=== PATIENT | female | born 1950 | race Caucasian/White ===

== ENCOUNTER 2018-04-17 00:23 | Inpatient (IN) | payer OTHER ==
--- NOTE | 2018-04-17 00:42 | PDOC ---
History of Present Illness - General History Source: Patient Exam Limitations: No Limitations - History of Present Illness Initial Comments: 04/17/18 01:45 The patient is a 67 year old female with past medical history of HTN, Hypercholesterolemia, and Diabetes presents to the emergency department with chest pain since around 11:00 PM Wednesday night. The patient reports she was laying down when an onset of chest pain manifested cause her to jump out of bed . The patient reports the pain radiates to her jaws, with associated symptoms of dyspnea, with no alleviating factors. The patient reports she was experiencing indigestion prior to the chest pain, reports eating watermelon and having a glass of wine around 9:00 PM Wednesday. The patient reports a baseline of difficulty sleeping during night time. The patient reports having a stress test done couple of year ago, which was reported to be normal. The patient reports she had a blood work done with Dr. Mcneill, shell know the result next week. Denies any fever, chills, headache, or cough. Denies any heart palpitation or pain to the upper extremity. Denies any numbness, tingling or weakness. Denies any nausea, vomiting, diarrhea or constipation. Denies dysuria , hematuria, frequency or urgency to urinate. Denies any recent flying. Allergies: Sulfonamide Antibiotic Social history: Former smoker (quit 5-6 years ago). Occasional use of alcohol. Denies the use of recreational drugs. Surgical history: Appendectomy, Cholecystectomy and back surgery. PCP: Dr. Mcneill <Rani De Paz - Last Filed: 04/17/18 01:45> <Tulio Reyes - Last Filed: 04/17/18 02:56> - General Chief Complaint: Chest Pain Stated Complaint: CHEST PAIN,SHORTNESS OF BREATH Time Seen by Provider: 04/17/18 00:38 Past History <Rani De Paz - Last Filed: 04/17/18 01:45> - Past Medical History Anemia: No Asthma: No Cancer: No Cardiac Disorders: No CVA: No COPD: No CHF: No Dementia: No Diabetes: Yes GI Disorders: No Disorders: No HTN: Yes Hypercholesterolemia: Yes Liver Disease: No Seizures: No Thyroid Disease: No - Surgical History Abdominal Surgery: No Appendectomy: Yes (COLONOSCOPY, EGD) Cardiac Surgery: No Cholecystectomy: Yes Lung Surgery: No Neurologic Surgery: Yes (BACK) Orthopedic Surgery: No - Suicide/Smoking/Psychosocial Hx Smoking History: Unknown if ever smoked Have you smoked in the past 12 months: No Number of Cigarettes Smoked Daily: 10 If you are a former smoker, when did you quit?: sep 2013 'Breaking Loose' booklet given: 10/10/13 Hx Alcohol Use: Yes (social) Drug/Substance Use Hx: No Substance Use Type: None <Tulio Reyes - Last Filed: 04/17/18 02:56> - Past Medical History Allergies/Adverse Reactions: Allergies Allergy/AdvReac Type Severity Reaction Status Date / Time Sulfa (Sulfonamide Allergy Verified 05/22/15 06:35 Antibiotics) Home Medications: Ambulatory Orders Simvastatin [Zocor] 40 mg PO HS 10/10/13 Furosemide [Lasix -] 40 mg PO DAILY #0 tablet 10/11/13 Metformin HCl [Riomet] 500 mg PO DAILY #0 ml 10/11/13 Nifedipine [Procardia Xl] 60 mg PO DAILY #0 tab.er.24 10/11/13 Carvedilol [Coreg -] 6.25 mg PO BID 05/17/15 Cyclobenzaprine HCl [Flexeril -] 10 mg PO HS 05/17/15 Multivitamins [Tab-A-Vit -] 1 tab PO DAILY 05/17/15 Aspirin [Ecotrin] 81 mg PO DAILY 09/30/15 Ranitidine HCl [Zantac] 150 mg PO BID 09/30/15 Meclizine HCl 25 mg PO PRN 04/17/18 Meloxicam [Mobic] 7.5 mg PO DAILY 04/17/18 Review of Systems - Review of Systems Constitutional: No: Chills, Fever Respiratory: Yes: Shortness of Breath. No: Cough Cardiac (ROS): Yes: Chest Pain. No: Edema, Lightheadedness, Palpitations, Syncope ABD/GI: No: Diarrhea, Nausea, Vomiting Neurological: No: Headache All Other Systems: Reviewed and Negative <Tulio Reyes - Last Filed: 04/17/18 02:56> *Physical Exam - Vital Signs Last Vital Signs Temp Pulse Resp BP Pulse Ox 97.5 F L 107 H 22 140/78 100 04/17/18 00:27 04/17/18 00:27 04/17/18 00:27 04/17/18 00:27 04/17/18 00:27 - Physical Exam Comments: 04/17/18 01:46 GENERAL: The patient is awake, alert, and fully oriented, in no acute distress. HEAD: Normal with no signs of trauma. EYES: Pupils equal, round and reactive to light, extraocular movements intact, sclera anicteric, conjunctiva clear with no pallor. ENT: Ears normal, nares patent, oropharynx clear without exudates. Moist mucous membranes. NECK: Normal range of motion, supple without lymphadenopathy, JVD, or masses. LUNGS: Breath sounds equal, clear to auscultation bilaterally. No wheeze/ crackles. HEART: (+) Sligh tachycardia. normal S1 and S2 without murmur or rub. ABDOMEN: Soft/nontender/nondistended. BS wnl. No guarding or rebound. No palpable masses. No hepatosplenomegaly. EXTREMITIES: (+) Trace pretibial edema bilaterally. No calf tenderness. Normal range of motion. No clubbing or cyanosis. No cords, erythema, or tenderness. NEUROLOGICAL: Cranial nerves II through XII grossly intact. Normal speech. PSYCH: Normal mood, normal affect. SKIN: Warm, Dry, normal turgor, no rashes or lesions noted. <Rani De Paz - Last Filed: 04/17/18 01:45> - Vital Signs Last Vital Signs Temp Pulse Resp BP Pulse Ox 97.5 F L 107 H 22 140/78 100 04/17/18 00:27 04/17/18 00:27 04/17/18 00:27 04/17/18 00:27 04/17/18 00:27 <Tulio Reyes - Last Filed: 04/17/18 02:56> Heart Score/ECG Review #1 ECG reviewed & interpreted by me at: 00:27 General ECG Interpretation: Sinus Rhythm, Normal Rate (103), Normal Intervals ( qtc 492), No acute ischemic changes (isolated Q III) Compared to previous ECG there are: No significant change (c/w 09/2013) #2 ECG reviewed & interpreted by me at: 02:00 General ECG Interpretation: Sinus Rhythm, Normal Rate, Normal Intervals, No acute ischemic changes Compared to previous ECG there are: No significant change <Tulio Reyes - Last Filed: 04/17/18 02:56> ED Treatment Course - LABORATORY CBC & Chemistry Diagram: 04/17/18 01:00 04/17/18 01:00 - ADDITIONAL ORDERS Additional order review: 04/17/18 01:00 RBC 4.27 MCV 86.5 MCHC 32.8 RDW 14.8 MPV 7.5 Neutrophils % 56.3 Lymphocytes % 29.4 Monocytes % 9.3 Eosinophils % 4.1 Basophils % 0.9 - Medications Given in the ED: ED Medications Discontinued Medications Generic Name Dose Route Start Last Admin Trade Name Kendell PRN Reason Stop Dose Admin Aspirin 162 mg 04/17/18 00:58 04/17/18 01:18 Asa - PO 04/17/18 00:59 162 mg ONCE ONE Administration Morphine Sulfate 2 mg 04/17/18 00:58 04/17/18 01:18 Morphine Injection - IVPUSH 04/17/18 00:59 2 mg ONCE ONE Administration <Rani De Paz - Last Filed: 04/17/18 01:45> - LABORATORY CBC & Chemistry Diagram: 04/17/18 01:00 04/17/18 01:00 <Tulio Reyes - Last Filed: 04/17/18 02:56> Medical Decision Making - Medical Decision Making 04/17/18 00:54 A portion of this note was documented by scribe services under my direction. I have reviewed the details of the note, within reason, and agree with the documentation with the following case summary and management plan written by me. 67-year-old female with history of hypertension, high cholesterol, diabetes presents with chest pain this evening. Patient was in her usual state of normal health, felt some postprandial fullness this evening after dinner, subsequently felt a relatively severe chest pressure associated with shortness of breath when she went to bed around 11:30. The pressures persisting, substernal, and radiating to her jaw. There was no lightheadedness or syncope, no diaphoresis or vomiting. She has somewhat limited exercise tolerance at baseline secondary to back pain, but she denies history of exertional chest pain or dyspnea. Patient had a stress test a couple of years ago with Dr. Mann that was reportedly normal, denies any recent infectious symptoms or signs or symptoms of DVT/PE. VSS, slight tachy at 100 but anxious at the moment no jvd s1s2 rrr, ctab abd soft trace pretibial b/l. no calf ttp 67y/o F HTN, DM, high cholesterol with relatively sudden onset chest pressure and shortness of breath. episode concerning for angina given risk factors and acuity, still doesn't feel too well. prompt EKG shows sinus tach at 103, no acute ischemia and isolated old Q wave placed on monitor and O2 applied labs, cxr asa, morphine will need admission for further cardiac monitoring and workup 04/17/18 01:59 cbc wnl. persistent discomfort despite morphine, HR remains at 98, BP 105 systolic. slight diaphoresis but no nausea. Repeat EKG, awaiting trop and CXR. 04/17/18 02:22 labs wnl, trop negative. repeat EKG no change. received fluids and feels a little better. Proceed with tele admit, Dr. Ramsey covering [facility]. 04/17/18 02:[address] Ramsey. If no response, will admit to symphony team. <Tulio Reyes - Last Filed: 04/17/18 02:56> *DC/Admit/Observation/Transfer - Attestations Scribe Attestion: 04/17/18 01:46 Documentation prepared by Rani De Paz, acting as medical diagnostic radiographer for Tulio Reyes MD. <Rani De Paz - Last Filed: 04/17/18 01:45> <Tulio Reyes - Last Filed: 04/17/18 02:56> Diagnosis at time of Disposition: Precordial chest pain - Discharge Dispostion Condition at time of disposition: Fair
[2018-04-17] MEDS ORDERED: morphine CARPU-JECT 4 MG/1 ML DISP.SYRIN IVPUSH ONE (00:58)
[2018-04-17] MEDS ORDERED: ASPIRIN 81 MG CHEWABLE TABLETS PO ONE (00:58)
[2018-04-17] MEDS ORDERED: morphine CARPU-JECT 2 MG/1 ML DISP.SYRIN ONE (01:03)
[2018-04-17] MEDS ORDERED: ASPIRIN 81 MG CHEWABLE TABLETS ONE (01:04)
[2018-04-17 01:21] LABS: BASO % 0.9 % (0-2.0); EOS % 4.1 % (0-4.5); HEMOGLOBIN 12.1 GM/dL (10.7-15.3); LYMPH % 29.4 % (8-40); MCH 28.4 pg (25.7-33.7); MCHC 32.8 g/dl (32.0-36.0); MEAN CELL VOLUME 86.5 fl (80-96); MEAN PLT VOLUME 7.5 fl (7.5-11.1); MONO % 9.3 % (3.8-10.2); NEUT % 56.3 % (42.8-82.8); PLATELET COUNT 268 K/MM3 (134-434); RBC 4.27 M/mm3 (3.60-5.2); RDW 14.8 % (11.6-15.6)
[2018-04-17 01:55] LABS: INR 0.94 (0.82-1.09); PROTHROMBIN TIME (PATIENT) 10.6 SEC (9.7-13.0)
[2018-04-17] MEDS ORDERED: SODIUM CHLORIDE 500 ML IV STA (01:59)
[2018-04-17 02:05] LABS: ALBUMIN 3.6 g/dl (3.4-5.0); ANION GAP 10 (8-16); BILIRUBIN,TOTAL 0.2 mg/dL (0.2-1.0); BLOOD UREA NITROGEN 15 mg/dL (7-18); CALCIUM 8.6 mg/dL (8.5-10.1); CHLORIDE 105 mmol/L (98-107); CO2 25 mmol/L (21-32); CREATININE 0.8 mg/dL (0.55-1.02); GLUCOSE,RANDOM 116 mg/dL (74-106); MAGNESIUM 2.3 mg/dL (1.8-2.4); POTASSIUM 3.5 mmol/L (3.5-5.1); SGOT/AST 21 U/L (15-37); SGPT/ALT 28 U/L (12-78); SODIUM 140 mmol/L (136-145); TOT PROT 7.1 g/dl (6.4-8.2)
[2018-04-17 02:10] LABS: ALK PHOS 112 U/L (45-117)
[2018-04-17] MEDS ORDERED: RANITIDINE HCL 150 MG TABLET (FP) PO ONE (02:47)
[2018-04-17] MEDS ORDERED: MAG HYDROX/AL HYDROX/SIMETH 30 ML UNIT-DOSE CUP PO ONE (02:47)
[2018-04-17] MEDS ORDERED: RANITIDINE HCL 150 MG TABLET (FP) ONE (03:03)
[2018-04-17] MEDS ORDERED: MAG HYDROX/AL HYDROX/SIMETH 30 ML UNIT-DOSE CUP ONE ×2 (03:03→06:25)
--- NOTE | 2018-04-17 03:28 | PDOC ---
*Physical Exam - Vital Signs Last Vital Signs Temp Pulse Resp BP Pulse Ox 97.5 F L 107 H 22 140/78 97 04/17/18 00:27 04/17/18 00:27 04/17/18 00:27 04/17/18 00:27 04/17/18 02:56 ED Treatment Course - LABORATORY CBC & Chemistry Diagram: 04/17/18 01:00 04/17/18 01:00 - ADDITIONAL ORDERS Additional order review: Laboratory Results 04/17/18 04/17/18 01:00 01:00 PT with INR 10.60 INR 0.94 Sodium 140 Potassium 3.5 Chloride 105 Carbon Dioxide 25 Anion Gap 10 BUN 15 Creatinine 0.8 Creat Clearance w eGFR > 60 Random Glucose 116 H Calcium 8.6 Magnesium 2.3 Total Bilirubin 0.2 D AST 21 ALT 28 Alkaline Phosphatase 112 Creatine Kinase 157 Creatine Kinase Index 1.1 CK-MB (CK-2) 1.847 Troponin I < 0.02 Total Protein 7.1 Albumin 3.6 04/17/18 01:00 RBC 4.27 MCV 86.5 MCHC 32.8 RDW 14.8 MPV 7.5 Neutrophils % 56.3 Lymphocytes % 29.4 Monocytes % 9.3 Eosinophils % 4.1 Basophils % 0.9 - Medications Given in the ED: ED Medications Discontinued Medications Generic Name Dose Route Start Last Admin Trade Name Kobiq PRN Reason Stop Dose Admin Al Hydroxide/Mg Hydroxide 30 ml 04/17/18 02:47 04/17/18 03:05 Mylanta Oral Suspension - PO 04/17/18 02:48 30 ml ONCE ONE Administration Aspirin 162 mg 04/17/18 00:58 04/17/18 01:18 Asa - PO 04/17/18 00:59 162 mg ONCE ONE Administration Sodium Chloride 500 mls @ 500 mls/hr 04/17/18 01:59 04/17/18 02:14 Normal Saline - IV 04/17/18 02:58 500 mls/hr ASDIR STA Administration Morphine Sulfate 2 mg 04/17/18 00:58 04/17/18 01:18 Morphine Injection - IVPUSH 04/17/18 00:59 2 mg ONCE ONE Administration Ranitidine HCl 300 mg 04/17/18 02:47 04/17/18 03:05 Zantac - PO 04/17/18 02:48 300 mg ONCE ONE Administration Medical Decision Making - Medical Decision Making 04/17/18 03:[address] Nalini Ramsey. Accepts to telemetry admission. Requests Dr. House for cardiology consultation. *DC/Admit/Observation/Transfer Diagnosis at time of Disposition: Precordial chest pain - Discharge Dispostion Condition at time of disposition: Fair Decision to Admit order: Yes - Referrals - Patient Instructions - Post Discharge Activity
[2018-04-17] MEDS ORDERED: NITROGLYCERIN SUBLINGUAL 1/150 0.4 MG TAB SL PRN (03:56)
[2018-04-17] MEDS ORDERED: MECLIZINE HCL 25 MG TABLET (FP) PO PRN (04:00)
[2018-04-17 05:16] LABS: CHOLESTEROL 142 mg/dL (50-200); HDL CHOLESTEROL 57 mg/dL (40-60); TRIGLYCERIDES 118 mg/dL (35-160)
[2018-04-17] MEDS: INSULIN SLIDING SCALE (NOVOLOG) 1 VIAL SQ SCH ×3 (06:32→17:17)
[2018-04-17] MEDS: MAG HYDROX/AL HYDROX/SIMETH 30 ML UNIT-DOSE CUP PO SCH ×3 (06:32→17:15)
[2018-04-17] MEDS ORDERED: FUROSEMIDE 40 MG TABLET (FP) ONE (08:03)
[2018-04-17] MEDS ORDERED: ASPIRIN COATED 81 MG TABLET.EC ONE (08:03)
[2018-04-17] MEDS ORDERED: RANITIDINE HCL 150 MG TABLET (FP) PO SCH (10:00)
--- NOTE | 2018-04-17 10:10 | EKG ---
Test Reason : Blood Pressure : / mmHG Vent. Rate : 103 BPM Atrial Rate : 103 BPM P-R Int : 160 ms QRS Dur : 080 ms QT Int : 376 ms P-R-T Axes : 044 028 050 degrees QTc Int : 492 ms SINUS TACHYCARDIA OTHERWISE NORMAL ECG WHEN COMPARED WITH ECG OF 10-OCT-2013 14:00, NO SIGNIFICANT CHANGE WAS FOUND Confirmed by RAKEL PRESLEY MD ([id number]) on 04/17/2018 10:10:01 AM Referred By: Confirmed By:RAKEL PRESLEY MD
--- NOTE | 2018-04-17 10:12 | EKG ---
Test Reason : Blood Pressure : / mmHG Vent. Rate : 095 BPM Atrial Rate : 095 BPM P-R Int : 168 ms QRS Dur : 066 ms QT Int : 376 ms P-R-T Axes : 042 028 052 degrees QTc Int : 472 ms NORMAL SINUS RHYTHM NORMAL ECG WHEN COMPARED WITH ECG OF 17-APR-2018 00:27, NO SIGNIFICANT CHANGE WAS FOUND Confirmed by RAKEL PRESLEY MD ([id number]) on 04/17/2018 10:12:21 AM Referred By: Confirmed By:RAKEL PRESLEY MD
[2018-04-17] MEDS ORDERED: FAMOTIDINE 20 MG/50 ML IVPB 20 MG/50 ML MG IVPB ONE (10:37)
[2018-04-17] MEDS: MULTIVITAMINS (DAILY MVI) TABLET (FP) PO SCH (11:15)
[2018-04-17] MEDS: ASPIRIN COATED 81 MG TABLET.EC PO SCH (11:15)
[2018-04-17] MEDS: NIFEdipine E.R 60 MG TABLET (UD) PO SCH (11:15)
[2018-04-17] MEDS: CARVEDILOL 6.25 MG TABLET (FP) PO SCH ×2 (11:15→22:04)
[2018-04-17] MEDS: FAMOTIDINE 20 MG/50 ML IVPB 20 MG/50 ML MG IVPB SCH ×2 (11:15→22:04)
[2018-04-17] MEDS: FUROSEMIDE 40 MG TABLET (FP) PO SCH (11:15)
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
[2018-04-17 15:15] VITALS: BMI 36.8
--- NOTE | 2018-04-17 15:50 | CON.CARD ---
Cardiology Consult (text) - Consultation Consultation Note: CC: cp 67 yo with pmhx of NIDDM, HTN, HLD, GERD, and chronic back issues due to spinal stenosis on [facility] who p/w cp. chest pain since around 11:00 PM Wednesday night when lying down. Had a glass of wine earlier that evening which sometimes exacerbates her gerd, but not always. Unclear if cp was similar to chronic gerd pain. States pain was severe enough to wake her up from sleep. The patient reports the pain radiated to her jaws. Associated symptoms of dyspnea. . S/p ASA 162, morphine, 500 cc IVF, mylanta and zantac. Sx's resolved after GI meds. No recurrence since. Denies orthopnea, pnd, le edema, palps, claudication or transient neurologic symptoms Denies f/c/s, n/v/d , cough, congestion, rash, h/a, visual disturbances. pmhx/pshx: per hpi Social history: Former smoker (quit 5-6 years ago). Occasional use of alcohol. Denies the use of recreational drugs. Fam hx: mother with hx of cad/stents and ppm ros: per hpi Ambulatory Orders Simvastatin [Zocor] 40 mg PO HS 10/10/13 Furosemide [Lasix -] 40 mg PO DAILY #0 tablet 10/11/13 Metformin HCl [Riomet] 500 mg PO DAILY #0 ml 10/11/13 Nifedipine [Procardia Xl] 60 mg PO DAILY #0 tab.er.24 10/11/13 Carvedilol [Coreg -] 6.25 mg PO BID 05/17/15 Cyclobenzaprine HCl [Flexeril -] 10 mg PO HS 05/17/15 Multivitamins [Tab-A-Vit -] 1 tab PO DAILY 05/17/15 Aspirin [Ecotrin] 81 mg PO DAILY 09/30/15 Ranitidine HCl [Zantac] 150 mg PO BID 09/30/15 Meclizine HCl 25 mg PO PRN 04/17/18 Meloxicam [Mobic] 7.5 mg PO DAILY 04/17/18 Current Medications Al Hydroxide/Mg Hydroxide (Mylanta Oral Suspension -) 30 ml PO Q6HPO [facility] Last Admin: 04/17/18 12:44 Dose: 30 ml Aspirin (Ecotrin -) 81 mg PO DAILY [facility] Last Admin: 04/17/18 11:15 Dose: 81 mg Atorvastatin Calcium (Lipitor -) 20 mg PO HS [facility] Carvedilol (Coreg -) 6.25 mg PO BID [facility] Last Admin: 04/17/18 11:15 Dose: 6.25 mg Cyclobenzaprine HCl (Flexeril -) 10 mg PO HS [facility] Furosemide (Lasix -) 40 mg PO DAILY [facility] Last Admin: 04/17/18 11:15 Dose: 40 mg Famotidine/Sodium Chloride (Pepcid 20 Mg Premixed Ivpb -) 20 mg in 50 mls @ 100 mls/hr IVPB BID [facility] Last Admin: 04/17/18 11:15 Dose: 100 mls/hr Insulin Aspart (Novolog Vial Sliding Scale -) 1 vial SQ TIDAC [facility]; Protocol Last Admin: 04/17/18 12:44 Dose: Not Given Meclizine HCl (Antivert -) 25 mg PO Q8H PRN PRN Reason: VERTIGO Multivitamins/Minerals/Vitamin C (Tab-A-Vit -) 1 tab PO DAILY [facility] Last Admin: 04/17/18 11:15 Dose: 1 tab Nifedipine (Procardia Xl -) 60 mg PO DAILY [facility] Last Admin: 04/17/18 11:15 Dose: 60 mg Nitroglycerin (Nitrostat -) 0.4 mg SL Q5M PRN PRN Reason: FOR CHEST PAIN Vital Signs - 24 hr 04/17/18 04/17/18 04/17/18 00:27 02:56 06:41 Temperature 97.5 F L Pulse Rate 107 H Pulse Rate [ 84 Right Apical] Respiratory 22 16 Rate Blood Pressure 140/78 Blood Pressure 101/67 [Right Arm] O2 Sat by Pulse 100 97 99 Oximetry (%) 04/17/18 04/17/18 04/17/18 07:00 10:00 11:00 Temperature 98.3 F Pulse Rate 90 Pulse Rate [ 75 89 Right Apical] Respiratory 16 16 16 Rate Blood Pressure 112/76 Blood Pressure 118/74 157/72 [Right Arm] O2 Sat by Pulse 100 96 99 Oximetry (%) 04/17/18 13:00 Temperature Pulse Rate Pulse Rate [ 91 H Right Apical] Respiratory 16 Rate Blood Pressure Blood Pressure 118/67 [Right Arm] O2 Sat by Pulse 96 Oximetry (%) Intake & Output 05/04/16/18 04/17/18 04/18/18 07:59 07:59 07:59 07:59 Intake Total 240 Balance 240 Weight 218 lb 221 lb NAD, calm JVD flat, neck supple ctab, nl effort rrr nl s1, s2. no mrg + bs soft nt nd ext without e/c/c + dp/pt, no carotid bruits no jaundice, diaphoresis aaox3 CBC, BMP 04/17/18 01:00 04/17/18 01:00 Laboratory Tests 04/17/18 04/17/18 01:00 01:00 INR 0.94 Magnesium 2.3 EKG: wnl tele: sr cxr: no acute pathology, prominent hilar markings. home cardiac meds: zocor 40, lasix 40, nifedipine 60, coreg 6.25 mg bid, asa 81 , ASSESSEMENT/PLAN 67 yo with pmhx of HTN, HLD, GERD, NIDDM and chronic back issues due to spinal stenosis on [facility] who p/w cp. cp - per report, mildly abnormal stress test in 2010. - lyte repletion, change simva to atrova as mentioned below. check tsh. - tx of gerd contribution per pmd. - ce's neg x 2. will get 3rd set. con't asa, statin - atypical cp, but based on RF's and hx of possible prior ab stress. Will check echo and repeat stress. htn - labile, but overall controlled, con't to monitor on home regimen. HL - change simvastatin 40 to atorvastatin 20 in case simva is contributing to muscle aches.
[2018-04-17] MEDS ORDERED: POTASSIUM CHLORIDE TABS 20 MEQ TABLET.ER (FP) PO ONE (16:45)
--- NOTE | 2018-04-17 20:42 | EKG ---
Test Reason : Blood Pressure : / mmHG Vent. Rate : 091 BPM Atrial Rate : 091 BPM P-R Int : 172 ms QRS Dur : 074 ms QT Int : 378 ms P-R-T Axes : 043 015 041 degrees QTc Int : 464 ms NORMAL SINUS RHYTHM NORMAL ECG WHEN COMPARED WITH ECG OF 17-APR-2018 02:00, NO SIGNIFICANT CHANGE WAS FOUND Confirmed by RAKEL PRESLEY MD ([id number]) on 04/17/2018 8:42:22 PM Referred By: Edda SANCHEZ Confirmed By:RAKEL PRESLEY MD
[2018-04-17] MEDS: ATORVASTATIN CA 20 MG TABLET (FP) PO SCH (22:04)
[2018-04-17] MEDS: CYCLOBENZAPRINE HCL 10 MG TABLET (FP) PO SCH (22:04)
[2018-04-18] MEDS: MAG HYDROX/AL HYDROX/SIMETH 30 ML UNIT-DOSE CUP PO SCH ×4 (01:42→18:41)
[2018-04-18] MEDS ORDERED: PT OWN MED DRAWER 7, Y5N ONE (06:55)
[2018-04-18 07:17] LABS: CHLORIDE 108 mmol/L (98-107); POTASSIUM 4.1 mmol/L (3.5-5.1); SODIUM 141 mmol/L (136-145)
[2018-04-18 07:43] LABS: ANION GAP 4 (8-16); BLOOD UREA NITROGEN 10 mg/dL (7-18); CALCIUM 8.5 mg/dL (8.5-10.1); CO2 29 mmol/L (21-32); CREATININE 0.6 mg/dL (0.55-1.02); GLUCOSE,RANDOM 100 mg/dL (74-106)
[2018-04-18] MEDS: INSULIN SLIDING SCALE (NOVOLOG) 1 VIAL SQ SCH ×3 (07:47→17:16)
[2018-04-18] MEDS: ASPIRIN COATED 81 MG TABLET.EC PO SCH (09:29)
[2018-04-18] MEDS: MULTIVITAMINS (DAILY MVI) TABLET (FP) PO SCH (09:29)
[2018-04-18] MEDS: NIFEdipine E.R 60 MG TABLET (UD) PO SCH (09:29)
[2018-04-18] MEDS: FUROSEMIDE 40 MG TABLET (FP) PO SCH (09:29)
[2018-04-18] MEDS: CARVEDILOL 6.25 MG TABLET (FP) PO SCH ×2 (09:30→21:02)
[2018-04-18] MEDS: FAMOTIDINE 20 MG/50 ML IVPB 20 MG/50 ML MG IVPB SCH ×2 (09:30→21:01)
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
--- NOTE | 2018-04-18 14:18 | PN ---
Progress Note (short form) - Note Progress Note: CC: cp S: no cp, palps, dizziness, sob. Current Medications Al Hydroxide/Mg Hydroxide (Mylanta Oral Suspension -) 30 ml PO Q6HPO [facility] Last Admin: 04/18/18 13:00 Dose: Not Given Aspirin (Ecotrin -) 81 mg PO DAILY [facility] Last Admin: 04/18/18 09:29 Dose: 81 mg Atorvastatin Calcium (Lipitor -) 20 mg PO HS [facility] Last Admin: 04/17/18 22:04 Dose: 20 mg Carvedilol (Coreg -) 6.25 mg PO BID [facility] Last Admin: 04/18/18 09:30 Dose: 6.25 mg Cyclobenzaprine HCl (Flexeril -) 10 mg PO HS [facility] Last Admin: 04/17/18 22:04 Dose: 10 mg Furosemide (Lasix -) 40 mg PO DAILY [facility] Last Admin: 04/18/18 09:29 Dose: 40 mg Famotidine/Sodium Chloride (Pepcid 20 Mg Premixed Ivpb -) 20 mg in 50 mls @ 100 mls/hr IVPB BID [facility] Last Admin: 04/18/18 09:30 Dose: 100 mls/hr Insulin Aspart (Novolog Vial Sliding Scale -) 1 vial SQ TIDAC [facility]; Protocol Last Admin: 04/18/18 13:00 Dose: Not Given Meclizine HCl (Antivert -) 25 mg PO Q8H PRN PRN Reason: VERTIGO Multivitamins/Minerals/Vitamin C (Tab-A-Vit -) 1 tab PO DAILY [facility] Last Admin: 04/18/18 09:29 Dose: 1 tab Nifedipine (Procardia Xl -) 60 mg PO DAILY [facility] Last Admin: 04/18/18 09:29 Dose: 60 mg Nitroglycerin (Nitrostat -) 0.4 mg SL Q5M PRN PRN Reason: FOR CHEST PAIN Vital Signs - 24 hr 04/17/18 04/17/18 04/17/18 17:34 21:00 22:18 Temperature 97.9 F 98.0 F Pulse Rate 92 H 91 H Respiratory 20 20 16 Rate Blood Pressure 117/67 116/55 O2 Sat by Pulse 90 L Oximetry (%) 04/18/18 04/18/18 02:00 06:00 Temperature 98.0 F 97.6 F Pulse Rate 91 H 89 Respiratory 20 20 Rate Blood Pressure 127/75 125/92 O2 Sat by Pulse Oximetry (%) Intake & Output 04/16/18 04/17/18 04/18/18 04/19/18 07:59 07:59 07:59 07:59 Intake Total 890 Balance 890 Weight 218 lb 221 lb NAD, calm JVD flat, neck supple ctab, nl effort rrr nl s1, s2. no mrg + bs soft nt nd ext without e/c/c + dp/pt, no carotid bruits no jaundice, diaphoresis aaox3 CBC, BMP 04/17/18 01:00 04/18/18 06:00 Laboratory Tests 04/17/18 04/17/18 04/17/18 01:00 04:30 04:30 Magnesium 2.3 Troponin I < 0.02 < 0.02 Total LDL Cholesterol 75 TSH 04/17/18 04/18/18 17:35 06:00 Magnesium Troponin I < 0.02 Total LDL Cholesterol TSH 3.16 EKG: wnl tele: sr/sinus tach. cxr: no acute pathology, prominent hilar markings. home cardiac meds: zocor 40, lasix 40, nifedipine 60, coreg 6.25 mg bid, asa 81 , ASSESSEMENT/PLAN 67 yo with pmhx of HTN, HLD, GERD, NIDDM and chronic back issues due to spinal stenosis on mobic who p/w cp. cp - per report, mildly abnormal stress test in 2010. - lyte repletion, changed simva to atorva as mentioned below. - tx of gerd contribution per pmd. - ce's neg x 3. ekg without acute ischemic changes. con't asa, statin - atypical cp, but based on RF's and hx of possible prior ab stress. Will check echo and repeat stress. htn - contorlled, con't to monitor on home regimen. HL - changed simvastatin 40 to atorvastatin 20 in case simva is contributing to muscle aches.
[2018-04-18] MEDS: CYCLOBENZAPRINE HCL 10 MG TABLET (FP) PO SCH (21:02)
[2018-04-18] MEDS: ATORVASTATIN CA 20 MG TABLET (FP) PO SCH (21:02)
[2018-04-19] MEDS: MAG HYDROX/AL HYDROX/SIMETH 30 ML UNIT-DOSE CUP PO SCH ×4 (00:49→17:02)
[2018-04-19] MEDS: INSULIN SLIDING SCALE (NOVOLOG) 1 VIAL SQ SCH ×3 (06:16→17:02)
[2018-04-19] MEDS: FAMOTIDINE 20 MG/50 ML IVPB 20 MG/50 ML MG IVPB SCH (10:00)
[2018-04-19] MEDS ORDERED: REGADENOSON 0.4 MG/5 ML PRE-FILLED SYRINGE IVPUSH ONE ×2 (12:58→14:30)
[2018-04-19] MEDS: MULTIVITAMINS (DAILY MVI) TABLET (FP) PO SCH (14:01)
[2018-04-19] MEDS: FUROSEMIDE 40 MG TABLET (FP) PO SCH (14:01)
[2018-04-19] MEDS: ASPIRIN COATED 81 MG TABLET.EC PO SCH (14:01)
[2018-04-19 15:42] VITALS: PULSE 96
--- NOTE | 2018-04-19 16:16 | PN ---
Progress Note, Physician Chief Complaint: Ms Burt is without complaint. Denies cp, sob, n/v. - Current Medication List Current Medications: Active Medications Al Hydroxide/Mg Hydroxide (Mylanta Oral Suspension -) 30 ml PO Q6HPO [facility] Last Admin: 04/19/18 12:00 Dose: Not Given Aspirin (Ecotrin -) 81 mg PO DAILY [facility] Last Admin: 04/19/18 14:01 Dose: 81 mg Atorvastatin Calcium (Lipitor -) 20 mg PO HS [facility] Last Admin: 04/18/18 21:02 Dose: 20 mg Carvedilol (Coreg -) 6.25 mg PO BID [facility] Last Admin: 04/18/18 21:02 Dose: 6.25 mg Cyclobenzaprine HCl (Flexeril -) 10 mg PO HS [facility] Last Admin: 04/18/18 21:02 Dose: 10 mg Furosemide (Lasix -) 40 mg PO DAILY [facility] Last Admin: 04/19/18 14:01 Dose: 40 mg Famotidine/Sodium Chloride (Pepcid 20 Mg Premixed Ivpb -) 20 mg in 50 mls @ 100 mls/hr IVPB BID [facility] Last Admin: 04/19/18 10:00 Dose: Not Given Insulin Aspart (Novolog Vial Sliding Scale -) 1 vial SQ TIDAC [facility]; Protocol Last Admin: 04/19/18 11:00 Dose: Not Given Meclizine HCl (Antivert -) 25 mg PO Q8H PRN PRN Reason: VERTIGO Multivitamins/Minerals/Vitamin C (Tab-A-Vit -) 1 tab PO DAILY [facility] Last Admin: 04/19/18 14:01 Dose: 1 tab Nifedipine (Procardia Xl -) 60 mg PO DAILY [facility] Last Admin: 04/18/18 09:29 Dose: 60 mg Nitroglycerin (Nitrostat -) 0.4 mg SL Q5M PRN PRN Reason: FOR CHEST PAIN - Objective Vital Signs: Vital Signs Temperature 36.6 C 04/19/18 13:15 Pulse Rate 96 H 04/19/18 13:15 Respiratory Rate 18 04/19/18 13:15 Blood Pressure 117/64 04/19/18 13:15 O2 Sat by Pulse Oximetry (%) 98 04/19/18 09:00 Constitutional: Yes: No Distress, Calm, Obese Cardiovascular: Yes: Regular Rate and Rhythm. No: Gallop, Murmur, Rub Respiratory: Yes: Regular, CTA Bilaterally. No: Rales, Rhonchi, Wheezes Gastrointestinal: Yes: Normal Bowel Sounds, Soft. No: Distention, Tenderness Extremities: Yes: WNL Edema: No Labs: CBC, BMP 04/17/18 01:00 04/18/18 06:00 INR, PTT INR 0.94 (0.82-1.09) 04/17/18 01:00 Problem List - Problems (1) Chest pain Code(s): R07.9 - CHEST PAIN, UNSPECIFIED (2) GERD (gastroesophageal reflux disease) Code(s): K21.9 - GASTRO-ESOPHAGEAL REFLUX DISEASE WITHOUT ESOPHAGITIS (3) HTN (hypertension) Code(s): I10 - ESSENTIAL (PRIMARY) HYPERTENSION (4) Hypercholesterolemia Code(s): E78.00 - PURE HYPERCHOLESTEROLEMIA, UNSPECIFIED (5) Obesity (BMI 35.0-39.9 without comorbidity) Code(s): E66.9 - OBESITY, UNSPECIFIED (6) T2DM (type 2 diabetes mellitus) Code(s): E11.9 - TYPE 2 DIABETES MELLITUS WITHOUT COMPLICATIONS Assessment/Plan -case d/w Dr Singh -chest pain currently resolved -? secondary to GERD -s/p stress test -if stress test normal, discharge home and follow up with Dr Gonzales -if abnormal, cardiology to evaluate for further intervention -continue current regimen
[2018-04-19 18:22] VITALS: BP 127/65; TEMP 99.9
--- NOTE | 2018-04-20 09:24 | DS ---
Physical Examination Vital Signs: Vital Signs Temperature 37.7 C H 04/19/18 18:21 Pulse Rate 96 H 04/19/18 18:21 Respiratory Rate 20 04/19/18 18:21 Blood Pressure 127/65 04/19/18 18:21 O2 Sat by Pulse Oximetry (%) 98 04/19/18 09:00 Labs: CBC, BMP 04/17/18 01:00 04/18/18 06:00 Discharge Summary Reason For Visit: PRECORDIAL PAIN Hospital Course: Patient admitted for atypical chest pain. She was monitored on telemetry. Cardiac enzymes x3 were checked and normal. She had a stress test and it was normal. Her discharge was confirmed by cardiology. She is safe for discharge home. Condition: Good - Instructions Diet, Activity, Other Instructions: resume previous diet and activity. Referrals: Yemi Mcneill MD [Staff Physician] - Fabrizio Howell MD [Staff Physician] - Mandeep Martínez MD [Staff Physician] - Disposition: HOME - Home Medications Comprehensive Discharge Medication List: Ambulatory Orders Simvastatin [Zocor -] 40 mg PO HS 10/10/13 Furosemide [Lasix -] 40 mg PO DAILY #0 tablet 10/11/13 Metformin HCl [Riomet] 500 mg PO DAILY #0 ml 10/11/13 Nifedipine [Procardia Xl] 60 mg PO DAILY #0 tab.er.24 10/11/13 Carvedilol [Coreg -] 6.25 mg PO BID 05/17/15 Cyclobenzaprine HCl [Flexeril -] 10 mg PO HS 05/17/15 Multivitamins [Multivit ([facility] Formulary)] 1 tab PO DAILY 05/17/15 Aspirin [Ecotrin] 81 mg PO DAILY 09/30/15 Ranitidine HCl [Zantac] 150 mg PO BID 09/30/15 Meclizine HCl 25 mg PO PRN 04/17/18 Meloxicam [Mobic] 7.5 mg PO DAILY 04/17/18
== END 2018-04-19 18:55 | disposition home or self-care (01) | DRG 313 ==
LOC: JER 00:23 → JERBED 03:28 → J4S 13:17
PROVIDERS: ADMIT Internal Medicine; ATTEND Internal Medicine
DX: R07.2 Precordial pain (principal); I10 Essential (primary) hypertension; E78.00 Pure hypercholesterolemia, unspecified; E11.9 Type 2 diabetes mellitus without complications; Z87.891 Personal history of nicotine dependence; Z79.84 Long term (current) use of oral hypoglycemic drugs; E66.9 Obesity, unspecified; Z68.36 Body mass index [BMI] 36.0-36.9, adult; M54.9 Dorsalgia, unspecified
CPT/HCPCS: 36415; 71045-TC-FY; 78452-TC; 80048; 80053; 80061; 82550; 82553; 82962; 83036; 83721; 83735; 84443; 84484; 85025; 85610; 93005; 93010; 93017; 93306-TC; 99285-25; A9502; J2785

== ENCOUNTER 2018-06-20 07:01 | Day surgery (SDC) | payer OTHER ==
[2018-06-17 13:55] VITALS: BMI 39.4
[2018-06-20 07:43] VITALS: TEMP 98.2
[2018-06-20] MEDS ORDERED: LIDOCAINE HCL/PF 2% SDV 5ML VIAL ONE (08:04)
[2018-06-20] MEDS ORDERED: PROPOFOL 20 ML ONE ×3 (08:04)
[2018-06-20 10:35] VITALS: BP 123/73; PULSE 71
--- NOTE | 2018-06-21 15:44 | PATH ---
Surgical Pathology Report Patient Name: JAMES GODOY [facility]. Rec. #: [id number] /Age/Gender: 1950 (Age: 68) / F Account: [id number] Location: U-ENDOSCOPY Taken: 06/20/2018 Received: 06/20/2018 Reported: 06/21/2018 Physicians: Mandeep Martínez M.D. Specimen(s) Received A: BX 2ND PORTION DUODENUM AND BULB B: BX ANTRUM C: BX GASTRIC BODY POLYP D: BX GE JUNCTION Clinical History Chest pain, heartburn Final Diagnosis A. SECOND PORTION DUODENUM AND BULB, BIOPSY: DUODENAL MUCOSA WITH MILD CHRONIC DUODENITIS. B. ANTRUM, BIOPSY: GASTRIC MUCOSA WITH MILD CHRONIC GASTRITIS. IMMUNOSTAIN IS NEGATIVE FOR H. PYLORI ORGANISMS. C. GASTRIC BODY POLYP, BIOPSY: FUNDIC GLAND POLYP. IMMUNOSTAIN IS NEGATIVE FOR H. PYLORI ORGANISMS. D. GE JUNCTION, BIOPSY: ESOPHAGEAL (SQUAMOUS) MUCOSA WITH CHANGES CONSISTENT WITH REFLUX ESOPHAGITIS. Electronically Signed Be Jacobo M.D. Gross Description A. Received in formalin, labeled "second portion and duodenum bulb" are 3 markham, irregular portions of soft tissue measuring 0.4 cm. in greatest dimension. The specimens are submitted in toto in one cassette. B. Received in formalin, labeled "biopsy antrum" are 4 markham, irregular portions of soft tissue measuring 0.6 cm. in greatest dimension. The specimens are submitted in toto in one cassette. C. Received in formalin, labeled "biopsy gastric body polyp" are 2 markham, irregular portions of soft tissue measuring 0.4 cm. in greatest dimension. The specimens are submitted in toto in one cassette. D. Received in formalin, labeled "GE junction biopsy" are 2 markham, irregular portions of soft tissue measuring 0.3 cm. in greatest dimension. The specimens are submitted in toto in one cassette. __ KWS/06/20/2018 jena/06/20/2018
== END 2018-06-20 10:30 | disposition home or self-care (01) ==
LOC: JASU-ENDO 07:01
PROVIDERS: ATTEND Internal Medicine Gastroenterology
PROC: 0DB68ZX Excision of Stomach, Via Natural or Artificial Opening Endoscopic, Diagnostic (ICD-10-PCS; 2018-06-20)
PROC: 0DB38ZX Excision of Lower Esophagus, Via Natural or Artificial Opening Endoscopic, Diagnostic (ICD-10-PCS; 2018-06-20)
PROC: 0DB48ZX Excision of Esophagogastric Junction, Via Natural or Artificial Opening Endoscopic, Diagnostic (ICD-10-PCS; 2018-06-20)
PROC: 0DB98ZX Excision of Duodenum, Via Natural or Artificial Opening Endoscopic, Diagnostic (ICD-10-PCS; principal; 2018-06-20 08:00)
DX: K21.0 Gastro-esophageal reflux disease with esophagitis (principal); K44.9 Diaphragmatic hernia without obstruction or gangrene; K29.70 Gastritis, unspecified, without bleeding; K31.7 Polyp of stomach and duodenum
CPT/HCPCS: 88305-TC; 88342-TC

== ENCOUNTER 2018-10-12 08:15 | Emergency (ER) | payer OTHER ==
[2018-10-12 08:42] VITALS: BP 108/67; PULSE 82; TEMP 97.9; BMI 33.9
--- NOTE | 2018-10-12 09:15 | PDOC ---
History of Present Illness - General Chief Complaint: Pain Stated Complaint: KNEE PAIN Time Seen by Provider: 10/12/18 08:59 History Source: Patient Exam Limitations: No Limitations - History of Present Illness Initial Comments: 10/12/18 09:11 68 yr female with history of arthritis presents with pain to the right knee for 4 days denies trauma. denies fever or chills. Past History - Past Medical History Allergies/Adverse Reactions: Allergies Allergy/AdvReac Type Severity Reaction Status Date / Time Sulfa (Sulfonamide Allergy Verified 10/12/18 08:37 Antibiotics) Home Medications: Ambulatory Orders Simvastatin [Zocor -] 40 mg PO HS 10/10/13 Furosemide [Lasix -] 40 mg PO DAILY #0 tablet 10/11/13 Metformin HCl [Riomet] 500 mg PO DAILY #0 ml 10/11/13 Nifedipine [Procardia Xl] 60 mg PO DAILY #0 tab.er.24 10/11/13 Carvedilol [Coreg -] 6.25 mg PO BID 05/17/15 Cyclobenzaprine HCl [Flexeril -] 10 mg PO HS 05/17/15 Multivitamins [Multivit ([facility] Formulary)] 1 tab PO DAILY 05/17/15 Aspirin [Ecotrin] 81 mg PO DAILY 09/30/15 Meclizine HCl 25 mg PO PRN 04/17/18 Meloxicam [Mobic] 7.5 mg PO DAILY 04/17/18 Gabapentin [Neurontin] 400 mg PO DAILY 06/17/18 Mag Carb/Aluminum Hydrox/Algin [Gaviscon Liquid] 30 ml PO PRN PRN #0 oral.susp 06/20/18 Pantoprazole Sodium 40 mg PO HS #1 tablet. 06/20/18 Anemia: No Asthma: No Cancer: No Cardiac Disorders: No CVA: No COPD: No CHF: No Dementia: No Diabetes: Yes (NIDDM) GI Disorders: Yes (COLON POLYPS, DIVERTICULOSIS) Disorders: No HTN: Yes Hypercholesterolemia: Yes Liver Disease: No Seizures: No Thyroid Disease: No - Surgical History Abdominal Surgery: No Appendectomy: Yes Cardiac Surgery: No Cholecystectomy: Yes Lung Surgery: No Neurologic Surgery: Yes (BACK sx twice) Orthopedic Surgery: No - Suicide/Smoking/Psychosocial Hx Smoking History: Former smoker Have you smoked in the past 12 months: No Number of Cigarettes Smoked Daily: 10 If you are a former smoker, when did you quit?: sep 2013 Information on smoking cessation initiated: No 'Breaking Loose' booklet given: 10/10/13 Hx Alcohol Use: No Drug/Substance Use Hx: No Substance Use Type: None *Physical Exam - Vital Signs Last Vital Signs Temp Pulse Resp BP Pulse Ox 97.9 F 82 18 108/67 99 10/12/18 08:37 10/12/18 08:37 10/12/18 08:37 10/12/18 08:37 10/12/18 08:37 - Physical Exam General Appearance: Yes: Nourished, Appropriately Dressed HEENT: positive: EOMI, AUGIE Neck: positive: Supple. negative: Tender Respiratory/Chest: positive: Lungs Clear, Normal Breath Sounds. negative: Chest Tender Cardiovascular: positive: Regular Rhythm, Regular Rate Musculoskeletal: positive: Normal Inspection Extremity: positive: Normal Capillary Refill, Normal Range of Motion, Tender ( lateral, medial knee , neg calf or popliteal tenderness ) Integumentary: positive: Normal Color, Dry, Warm Neurologic: positive: Fully Oriented, Alert, Normal Mood/Affect, Normal Response , Motor Strength 5/5 Procedures - Splinting Pre-Made Type: knee immobilizer ED Treatment Course - RADIOLOGY Radiology Studies Ordered: Category Date Time Status KNEE 3 POS-RIGHT [RAD] Stat Radiology 10/12/18 09:09 Ordered Medical Decision Making - Medical Decision Making 10/12/18 09:14 cc: knee pain no redness no warmth, no calf tenderness will get xray knee immobilizer refer to ortho pt takes mobic daily for arthritis *DC/Admit/Observation/Transfer Diagnosis at time of Disposition: Knee pain, chronic Qualifiers: Laterality: right Qualified Code(s): M25.561 - Pain in right knee - Discharge Dispostion Disposition: HOME Condition at time of disposition: Good - Referrals Referrals: Yemi Mcneill MD [Primary Care Provider] - Alan Christianson MD [Staff Physician] - - Patient Instructions Additional Instructions: use the knee immobilizer while awake remove to sleep follow with the orthopedist listed below elevate and apply warm compresses every 4-6hrs for pain - Post Discharge Activity
== END 2018-10-12 10:19 | disposition home or self-care (01) ==
LOC: JERFT 08:15
PROC: 2W3QXYZ Immobilization of Right Lower Leg using Other Device (ICD-10-PCS; principal; 2018-10-12)
DX: M25.561 Pain in right knee (principal); G89.29 Other chronic pain; I10 Essential (primary) hypertension; E78.00 Pure hypercholesterolemia, unspecified; E11.9 Type 2 diabetes mellitus without complications; Z79.84 Long term (current) use of oral hypoglycemic drugs
CPT/HCPCS: 73562-TC-RT-FY; 99282-25

== ENCOUNTER 2019-07-02 09:11 | Emergency (ER) | payer OTHER | END 2019-07-02 10:30 | disposition home or self-care (01) | LOC: FER 09:11 ==

== ENCOUNTER 2020-06-07 06:48 | Day surgery (SDC) | payer OTHER ==
[2020-06-05 10:12] VITALS: BMI 35.8
[2020-06-07 08:34] VITALS: TEMP 97.8
[2020-06-07 09:21] VITALS: BP 105/53; PULSE 79
--- NOTE | 2020-06-10 17:13 | PATH ---
Surgical Pathology Report Patient Name: JAMES GODOY [facility]. Rec. #: [id number] /Age/Gender: 1950 (Age: 70) / F Account: [id number] Location: [facility]-ENDOSCOPY Taken: 06/07/2020 Received: 06/07/2020 Reported: 06/10/2020 Physicians: Mandeep Martínez M.D. Specimen(s) Received A: TRANSVERSE COLON POLYP B: RIGHT COLON POLYP C: DESCENDING COLON POLYP D: SIGMOID POLYPS Clinical History Change in bowel habits, bleeding Postoperative diagnosis: Diverticulosis, multiple colon polyps Final Diagnosis A. TRANSVERSE COLON, POLYP, POLYPECTOMY: TUBULAR ADENOMA. B. COLON, RIGHT, POLYP, BIOPSY: POLYPOID COLONIC MUCOSA WITH SMALL LYMPHOID AGGREGATE. C. DESCENDING COLON, POLYP, BIOPSY: TUBULAR ADENOMA. D. SIGMOID COLON, POLYPS, BIOPSY: HYPERPLASTIC POLYP(S). Electronically Signed Charlene Brown M.D. Gross Description A. Received in formalin, labeled "transverse colon polyp" is a markham, irregular portion of soft tissue measuring 0.3 cm. in greatest dimension. The specimen is submitted in toto in one cassette. B. Received in formalin, labeled "biopsy right colon polyp" are 4 markham, irregular portions of soft tissue ranging from 0.1-0.3 cm. in greatest dimension. The specimens are submitted in toto in one cassette. C. Received in formalin, labeled "biopsy descending colon polyp" are 2 markham, irregular portions of soft tissue averaging 0.2 cm. in greatest dimension. The specimens are submitted in toto in one cassette. D. Received in formalin, labeled "biopsy sigmoid colon polyps x2" are 4 markham, irregular portions of soft tissue ranging from 0.1-0.3 cm. in greatest dimension. The specimens are submitted in toto in one cassette. DL/06/07/2020 saudi/06/07/2020
== END 2020-06-07 10:10 | disposition home or self-care (01) ==
LOC: JASU-ENDO 06:48
PROVIDERS: ATTEND Internal Medicine Gastroenterology
PROC: 0DBL8ZX Excision of Transverse Colon, Via Natural or Artificial Opening Endoscopic, Diagnostic (ICD-10-PCS; 2020-06-07)
PROC: 0DBK8ZX Excision of Ascending Colon, Via Natural or Artificial Opening Endoscopic, Diagnostic (ICD-10-PCS; 2020-06-07)
PROC: 0DBN8ZX Excision of Sigmoid Colon, Via Natural or Artificial Opening Endoscopic, Diagnostic (ICD-10-PCS; 2020-06-07)
PROC: 0DBM8ZX Excision of Descending Colon, Via Natural or Artificial Opening Endoscopic, Diagnostic (ICD-10-PCS; principal; 2020-06-07 08:00)
DX: Z12.11 Encounter for screening for malignant neoplasm of colon (principal); Z86.010 Personal history of colon polyps; D12.2 Benign neoplasm of ascending colon; D12.4 Benign neoplasm of descending colon; D12.5 Benign neoplasm of sigmoid colon; D12.3 Benign neoplasm of transverse colon; K64.8 Other hemorrhoids; K57.30 Diverticulosis of large intestine without perforation or abscess without bleeding
CPT/HCPCS: 88305-TC

== ENCOUNTER 2020-11-07 10:07 | Emergency (ER) | payer OTHER ==
[2020-11-07 10:35] VITALS: PULSE 73; TEMP 98.9; BMI 32.8
[2020-11-07] MEDS ORDERED: ACETAMINOPHEN 325 MG TABLET (FP) PO ONE (10:35)
[2020-11-07] MEDS ORDERED: ACETAMINOPHEN 325 MG TABLET (FP) ONE (10:50)
[2020-11-07] MEDS ORDERED: LIDOCAINE 5% TOPICAL PATCH TP ONE (11:19)
[2020-11-07] MEDS ORDERED: LIDOCAINE 5% TOPICAL PATCH ONE (11:21)
[2020-11-07 12:24] VITALS: BP 149/89
[2020-11-07] MEDS ORDERED: LIDOCAINE PATCH REMOVAL MC SCH (22:00)
== END 2020-11-07 12:30 | disposition home or self-care (01) ==
LOC: FER 10:07 → SUPCPDRO 10:07 → FER 12:30
DX: S23.41XA Sprain of ribs, initial encounter (principal)
CPT/HCPCS: 71101-TC-RT-FY; 72110-TC-FY; 99285-25

== ENCOUNTER 2022-01-05 04:36 | Day surgery (SDC) | payer OTHER ==
[2021-12-31 15:03] VITALS: BMI 34.7
[2022-01-05 11:26] VITALS: TEMP 97
[2022-01-05 12:22] VITALS: BP 123/77; PULSE 87
== END 2022-01-05 12:30 | disposition home or self-care (01) ==
LOC: JASU-ENDO 04:36
PROVIDERS: ATTEND Internal Medicine Gastroenterology
PROC: 0DJD8ZZ Inspection of Lower Intestinal Tract, Via Natural or Artificial Opening Endoscopic (ICD-10-PCS; principal; 2022-01-05 11:00)
DX: Z12.11 Encounter for screening for malignant neoplasm of colon (principal); K57.30 Diverticulosis of large intestine without perforation or abscess without bleeding; K59.89 Other specified functional intestinal disorders; E11.9 Type 2 diabetes mellitus without complications; Z86.010 Personal history of colon polyps

== ENCOUNTER 2022-11-01 09:12 | Observation (INO) | payer OTHER ==
[2022-11-01] MEDS ORDERED: SODIUM CHLORIDE 1,000 ML IV STA (09:16)
[2022-11-01] MEDS ORDERED: ASPIRIN 81 MG CHEWABLE TABLETS ONE (09:26)
[2022-11-01] MEDS ORDERED: ASPIRIN 81 MG CHEWABLE TABLETS PO ONE (09:26)
[2022-11-01] MEDS ORDERED: ONDANSETRON 4 MG/2 ML VIAL IVPUSH ONE (09:41)
[2022-11-01] MEDS ORDERED: morphine CARPU-JECT 4 MG/1 ML DISP.SYRIN IVPUSH ONE (09:41)
[2022-11-01] MEDS ORDERED: ACETAMINOPHEN 1000 MG/100 ML BAG IVPB ONE (09:49)
[2022-11-01] MEDS ORDERED: morphine SULFATE 4 MG/ML VIAL ONE (09:50)
[2022-11-01] MEDS ORDERED: ONDANSETRON 4 MG/2 ML VIAL ONE (09:51)
[2022-11-01] MEDS ORDERED: ACETAMINOPHEN INJECTION 100 ML IVPB ONE (09:56)
[2022-11-01 10:00] LABS: EOS % 1.4 % (0-4.5); HEMATOCRIT 40.8 % (32.4-45.2); HEMOGLOBIN 13.6 GM/dL (10.7-15.3); LYMPH % 19.3 % (8-40); MCH 29.5 pg (25.7-33.7); MCHC 33.3 g/dl (32.0-36.0); MEAN CELL VOLUME 88.4 fl (80-96); MEAN PLT VOLUME 7.7 fl (7.5-11.1); MONO % 8.4 % (3.8-10.2); NEUT % 69.9 % (42.8-82.8); PLATELET COUNT 306 10^3/uL (134-434); RBC 4.61 M/mm3 (3.60-5.2); RDW 14.3 % (11.6-15.6); WHITE BLOOD COUNT 7.6 K/mm3 (4.0-10.0)
[2022-11-01 11:57] LABS: CALCIUM 9.7 mg/dL (8.5-10.1)
[2022-11-01 11:58] LABS: BLOOD UREA NITROGEN 15.5 mg/dL (7-18); MAGNESIUM 2.3 mg/dL (1.8-2.4)
[2022-11-01 12:01] LABS: CREATININE 0.8 mg/dL (0.55-1.3)
[2022-11-01 12:03] LABS: BILIRUBIN,TOTAL 0.4 mg/dL (0.2-1); TOT PROT 7.6 g/dl (6.4-8.2)
[2022-11-01] MEDS ORDERED: PATIENT'S OWN MEDICATION (NON-FORMULARY) (Mag Carb/Aluminum Hydrox/Algin [Gaviscon Liquid] PO PRN (14:51)
[2022-11-01] MEDS ORDERED: ACETAMINOPHEN 325 MG TABLET (FP) PO PRN (14:57)
[2022-11-01] MEDS ORDERED: ENALAPRIL MALEATE 5 MG TABLET PO SCH (15:00)
[2022-11-01] MEDS ORDERED: PATIENT'S OWN MEDICATION (NON-FORMULARY) (Dulaglutide [Trulicity] 0.75 MG/0.5 ML Pen.Injct SQ SCH (15:00)
[2022-11-01] MEDS ORDERED: ENALAPRIL MALEATE 5 MG TABLET ONE (17:49)
[2022-11-01] MEDS: INSULIN SLIDING SCALE (NOVOLOG) 1 VIAL SQ SCH ×2 (17:57→22:42)
[2022-11-01] MEDS: CARVEDILOL 6.25 MG TABLET (FP) PO SCH (21:46)
[2022-11-01] MEDS: HEPARIN NA (PORCINE) 5,000 UNITS/ML 1ML VIAL SQ SCH (21:47)
[2022-11-01] MEDS ORDERED: HEPARIN NA (PORCINE) 5,000 UNITS/ML 1ML VIAL ONE (21:49)
[2022-11-01] MEDS ORDERED: CARVEDILOL 6.25 MG TABLET (FP) ONE (21:49)
[2022-11-01] MEDS ORDERED: CYCLOBENZAPRINE HCL 10 MG TABLET (FP) ONE (21:49)
[2022-11-01] MEDS ORDERED: GABAPENTIN 400 MG CAPSULE ONE (21:49)
[2022-11-01] MEDS ORDERED: GABAPENTIN 400 MG CAPSULE PO SCH (22:00)
[2022-11-01] MEDS ORDERED: CYCLOBENZAPRINE HCL 10 MG TABLET (FP) PO SCH (22:00)
[2022-11-01 23:25] VITALS: BMI 35.8
[2022-11-02] MEDS: INSULIN SLIDING SCALE (NOVOLOG) 1 VIAL SQ SCH ×3 (06:24→16:57)
[2022-11-02 08:44] LABS: BASO % 0.7 % (0-2.0); EOS % 1.4 % (0-4.5); HEMOGLOBIN 12.5 GM/dL (10.7-15.3); LYMPH % 18.1 % (8-40); MCH 29.5 pg (25.7-33.7); MEAN CELL VOLUME 89.6 fl (80-96); MEAN PLT VOLUME 7.8 fl (7.5-11.1); MONO % 8.5 % (3.8-10.2); NEUT % 71.3 % (42.8-82.8); PLATELET COUNT 276 10^3/uL (134-434); RBC 4.24 M/mm3 (3.60-5.2); RDW 14.4 % (11.6-15.6)
[2022-11-02 09:17] LABS: ALBUMIN 3.3 g/dl (3.4-5.0); BLOOD UREA NITROGEN 12.3 mg/dL (7-18)
[2022-11-02 09:20] LABS: CREATININE 0.7 mg/dL (0.55-1.3)
[2022-11-02 09:21] LABS: CHOLESTEROL 179 mg/dL (50-200); TOT PROT 6.5 g/dl (6.4-8.2)
[2022-11-02 09:22] LABS: BILIRUBIN,TOTAL 0.3 mg/dL (0.2-1); LDL CHOLESTEROL (ONLY SJRH) 77 mg/dL (5-100); TRIGLYCERIDES 141 mg/dL (0-150)
[2022-11-02 09:24] LABS: HDL CHOLESTEROL 83 mg/dL (40-60)
[2022-11-02 09:30] VITALS: RESP 16
[2022-11-02] MEDS ORDERED: GINKGO BILOBA LEAF EXTRACT 30 MG PO SCH (10:00)
[2022-11-02] MEDS ORDERED: MULTIVITAMINS THER W-MINERALS COMBO TABLET (FP) PO SCH (10:00)
[2022-11-02] MEDS ORDERED: TURMERIC ROOT EXTRACT 500 MG PO SCH (10:00)
[2022-11-02] MEDS ORDERED: OXYBUTYNIN CHLORIDE 5 MG TABLET PO SCH (10:00)
[2022-11-02] MEDS ORDERED: MELOXICAM 7.5 MG PO SCH (10:00)
[2022-11-02] MEDS ORDERED: ATORVASTATIN CA 20 MG TABLET (FP) PO SCH (10:00)
[2022-11-02] MEDS ORDERED: VALSARTAN 80 MG TABLET PO SCH (10:00)
[2022-11-02] MEDS ORDERED: PANTOPRAZOLE 40 MG TABLET PO SCH (10:00)
[2022-11-02] MEDS ORDERED: FUROSEMIDE 40 MG TABLET (FP) PO SCH (10:00)
[2022-11-02] MEDS: CARVEDILOL 6.25 MG TABLET (FP) PO SCH (10:03)
[2022-11-02] MEDS: HEPARIN NA (PORCINE) 5,000 UNITS/ML 1ML VIAL SQ SCH (10:05)
[2022-11-02 16:53] VITALS: BP 140/74; PULSE 95; TEMP 98.4
== END 2022-11-02 19:00 | disposition home or self-care (01) ==
LOC: JER 09:12 → JERBED 09:41 → J4S 22:20
PROVIDERS: ADMIT Internal Medicine; ATTEND Internal Medicine
PROC: 3E033NZ Introduction of Analgesics, Hypnotics, Sedatives into Peripheral Vein, Percutaneous Approach (ICD-10-PCS; principal; 2022-11-01)
PROC: 3E023GC Introduction of Other Therapeutic Substance into Muscle, Percutaneous Approach (ICD-10-PCS; 2022-11-01)
PROC: 3E033NZ Introduction of Analgesics, Hypnotics, Sedatives into Peripheral Vein, Percutaneous Approach (ICD-10-PCS; 2022-11-01)
PROC: 3E0337Z Introduction of Electrolytic and Water Balance Substance into Peripheral Vein, Percutaneous Approach (ICD-10-PCS; 2022-11-01)
DX: U07.1 COVID-19 (principal); I16.0 Hypertensive urgency; E11.9 Type 2 diabetes mellitus without complications; M54.50 Low back pain, unspecified; K21.9 Gastro-esophageal reflux disease without esophagitis; R07.9 Chest pain, unspecified; E66.8 Other obesity; Z68.35 Body mass index [BMI] 35.0-35.9, adult; G89.29 Other chronic pain; Z87.891 Personal history of nicotine dependence; Z88.2 Allergy status to sulfonamides
CPT/HCPCS: 0241U-QW; 36415; 71045-TC-FY; 71275-TC; 74174-TC; 80053; 80061; 82550; 82962; 83036; 83735; 84443; 84484; 85025; 86850; 86900; 86901; 93005; 93010; 96361; 96372; 96374; 96375; 96376; 99285-25; G0378; J1644; Q9967

== ENCOUNTER 2023-10-22 04:32 | Day surgery (SDC) | payer OTHER ==
[2023-10-20 09:31] VITALS: BMI 38.7
[2023-10-22 12:55] VITALS: RESP 14
[2023-10-22 12:56] VITALS: BP 124/71
[2023-10-22 12:57] VITALS: PULSE 74; TEMP 97.4
== END 2023-10-22 13:15 | disposition home or self-care (01) ==
LOC: JASU-ENDO 04:32
PROVIDERS: ATTEND Internal Medicine Gastroenterology
PROC: 0DB78ZX Excision of Stomach, Pylorus, Via Natural or Artificial Opening Endoscopic, Diagnostic (ICD-10-PCS; 2023-10-22)
PROC: 0DB68ZX Excision of Stomach, Via Natural or Artificial Opening Endoscopic, Diagnostic (ICD-10-PCS; 2023-10-22)
PROC: 0DB48ZX Excision of Esophagogastric Junction, Via Natural or Artificial Opening Endoscopic, Diagnostic (ICD-10-PCS; 2023-10-22)
PROC: 0DB98ZX Excision of Duodenum, Via Natural or Artificial Opening Endoscopic, Diagnostic (ICD-10-PCS; principal; 2023-10-22 13:00)
DX: K21.00 Gastro-esophageal reflux disease with esophagitis, without bleeding (principal); K44.9 Diaphragmatic hernia without obstruction or gangrene; K29.50 Unspecified chronic gastritis without bleeding
CPT/HCPCS: 82962; 88305-TC; 88342-TC